=== PATIENT | male | born 1995 | race Two or more races ===

== ENCOUNTER 2020-07-08 07:39 | Outpatient (CLI) | payer OTHER | END 2020-07-08 07:46 | disposition home or self-care (01) | LOC: LAB 07:39 | DX: Z20.828 Contact with and (suspected) exposure to other viral communicable diseases (principal) ==

== ENCOUNTER 2022-07-03 14:02 | Outpatient (CLI) | payer OTHER | END 2022-07-03 14:03 | disposition home or self-care (01) | LOC: LAB 14:02 | PROVIDERS: ATTEND Obstetrics & Gynecology | DX: Z20.818 Contact with and (suspected) exposure to other bacterial communicable diseases (principal); Z20.828 Contact with and (suspected) exposure to other viral communicable diseases ==